=== PATIENT | male | born 1980 | race American Indian/Alaskan Native ===

== ENCOUNTER 2017-07-09 02:42 | Emergency (ER) | payer SELFPAY ==
[2017-07-09 02:43] VITALS: BMI 23.5
[2017-07-09 03:05] VITALS: BP 117/67; PULSE 100; RESP 20; TEMP 98.7; O2SAT 97
--- NOTE | 2017-07-09 03:19 | C.PDOC ---
History Of Present Illness 36 year old male presents to the ER after he bumped his head on the corner of a cabinet. Patient states he has a cyst like mass to the scalp on his head that suffered a laceration when he bumped his head. Denies LOC or vomiting. Time Seen by Provider: 07/09/17 03:07 Chief Complaint (Nursing): Abnormal Skin Integrity History Per: Patient History/Exam Limitations: no limitations Onset/Duration Of Symptoms: Hrs Current Symptoms Are (Timing): Still Present Quality Of Symptoms: Other (Laceration) Recent travel outside of the [place]: No Past Medical History Reviewed: Historical Data, Nursing Documentation, Vital Signs Vital Signs: Last Vital Signs Temp 98.7 F 07/09/17 03:00 Pulse 100 H 07/09/17 03:00 Resp 20 07/09/17 03:00 BP 117/67 07/09/17 03:00 Pulse Ox 97 07/09/17 03:28 - Medical History PMH: Asthma, Migraine - [facility] Procedures INJECT/INFUSE NEC (02/06/04) Family History: States: Unknown Family Hx - Social History Hx Tobacco Use: Yes Hx Alcohol Use: Yes Hx Substance Use: Yes - Immunization History Hx Tetanus Toxoid Vaccination: No Hx Influenza Vaccination: No Hx Pneumococcal Vaccination: No Review Of Systems Gastrointestinal: Negative for: Vomiting Skin: Positive for: Other (Laceration, Scalp cyst) Neurological: Negative for: Headache, Other (LOC) Physical Exam - Physical Exam Appears: Non-toxic, No Acute Distress Skin: Warm, Dry Head: Normacephalic, No Tenderness, Other (Nontender firm mass to mid scalp with 0.5cm abrasion. No active bleeding.) Eye(s): bilateral: Normal Inspection, PERRL, EOMI Ear(s): Bilateral: Normal Nose: Normal Oral Mucosa: Moist Neck: Normal, No Midline Cervical Tenderness, No Paracervical Tenderness, Supple ED Course And Treatment O2 Sat by Pulse Oximetry: 97 (Room air) Pulse Ox Interpretation: Normal Progress Note: Wound was cleansed and sealed with dermabond. Patient is resting comfortably in the ER in no acute distress, given proper wound care instructions and advised to follow up with surgery for further evaluation of mass. Disposition Counseled Patient/Family Regarding: Diagnosis, Need For Followup - Disposition Referrals: Reji Harrison MD [Staff Provider] - Disposition: HOME/ ROUTINE Disposition Time: 03:17 Condition: STABLE Additional Instructions: Please follow up with general surgery Return to ER if worse Instructions: Abrasion (ED) Forms: [employer] (Slovak) - Clinical Impression Clinical Impression: Abrasion head, Scalp cyst - PA / SENIOR TELECOMMUNICATIONS CONSULTANT / Resident Statement MD/DO has reviewed & agrees with the documentation as recorded. - Scribe Statement The provider has reviewed the documentation as recorded by the Scribe Wilfredo Tineo All medical record entries made by the Antonioibe were at my direction and personally dictated by me. I have reviewed the chart and agree that the record accurately reflects my personal performance of the history, physical exam, medical decision making, and the department course for this patient. I have also personally directed, reviewed, and agree with the discharge instructions and disposition.
== END 2017-07-09 03:30 | disposition home or self-care (01) ==
LOC: C.ER 02:42
DX: S00.01XA Abrasion of scalp, initial encounter (principal); W22.03XA Walked into furniture, initial encounter; Y92.89 Other specified places as the place of occurrence of the external cause; L72.8 Other follicular cysts of the skin and subcutaneous tissue

== ENCOUNTER 2017-07-23 10:12 | Day surgery (SDC) | payer SELFPAY ==
[2017-07-18 13:59] VITALS: BMI 29.7
[2017-07-23] MEDS ORDERED: Bupivacaine HCl 0.5% PF (10 ml) Inj ONE (12:25)
[2017-07-23] MEDS ORDERED: ceFAZolin IV 1 gm in Dextrose 1 GM/50 ML BAG IVPB ONE (12:25)
[2017-07-23] MEDS ORDERED: Bacitracin Ointment 30 GM TUBE ONE (12:26)
[2017-07-23] MEDS ORDERED: Lidocaine 1% Inj (20ml) ONE (12:42)
[2017-07-23] MEDS ORDERED: Lidocaine/Epinephrine 1% 1:100000 10 ML IJ ONE (13:06)
[2017-07-23] MEDS ORDERED: Midazolam 2 MG/2 ML VIAL ONE (13:08)
[2017-07-23] MEDS ORDERED: Propofol 10 mg/ml Inj (20 ML) ONE ×2 (13:08→13:33)
[2017-07-23] MEDS ORDERED: HYDROmorphone 0.5 mg/0.5 ml ISec IVP PRN (13:56)
[2017-07-23] MEDS ORDERED: Oxycodone/Acetaminophen 5/325 mg Tab PO PRN (14:21)
[2017-07-23 14:57] VITALS: PULSE 60; TEMP 97.6
[2017-07-23 15:37] VITALS: BP 145/89; RESP 16; O2SAT 100
--- NOTE | 2017-07-23 23:34 | OP ---
PROCEDURE DATE: 07/23/2017. PREOPERATIVE DIAGNOSIS: Large mass of scalp. POSTOPERATIVE DIAGNOSIS: Large mass of scalp. PROCEDURE PERFORMED: Deep excision mass of scalp with adjacent tissue transfer closure. SURGEON: Reji Harrison MD. TYPE OF ANESTHESIA: General. ESTIMATED BLOOD LOSS: 40 mL. POSTOPERATIVE CONDITION: Stable. INDICATIONS FOR SURGERY: This is a 36-year-old male, history of enlarging occipital scalp mass, now presents for excision procedure. DESCRIPTION OF PROCEDURE: The patient was taken to the operating room, placed in a prone position. IV sedation was administered and the scalp area was prepped and draped. Local anesthesia consisting of 1% lidocaine with epi and 0.5% Marcaine was infiltrated. A generous elliptical incision was made surrounding the mass. It was dissected into the scalp aponeurosis and removed. Bleeding was controlled using the Bovie. Generous tissue flaps raised for closure and adjacent tissue transfer closure was performed with multiple layers of Monocryl, subcuticular Monocryl and skin clips. The patient tolerated the procedure well, returned to recovery room in stable condition. Reji Harrison MD
== END 2017-07-23 15:36 | disposition home or self-care (01) ==
LOC: C.SDS 10:12
PROVIDERS: ATTEND Surgery
DX: L72.0 Epidermal cyst (principal)
CPT/HCPCS: 11420; 88307; J0690; J2250; J2704; J3010